=== PATIENT | female | born 1940 | race African-American/Black ===

== ENCOUNTER 2020-07-12 17:03 | Observation (INO) ==
[2020-07-12] MEDS ORDERED: Nystatin POWDER 30 GM BOTTLE TP PRN (18:56)
[2020-07-12] MEDS ORDERED: Acetaminophen 325 MG TABLET PO PRN (18:56)
[2020-07-12] MEDS ORDERED: hydrOXYzine pamoate 25 MG CAPSULE PO PRN (18:56)
[2020-07-12] MEDS ORDERED: Albuterol 2.5 MG/3 ML NEBULIZER IH PRN (18:56)
[2020-07-12] MEDS ORDERED: Venlafaxine XR (24 HR) 150 MG CAP.ER.24H PO SCH (21:00)
[2020-07-12] MEDS: Meropenem 1,000 MG in Water for inj. (sterile) 20 ML IVP SCH (22:45)
[2020-07-12] MEDS: Mirtazapine 15 MG TABLET PO SCH (22:46)
[2020-07-12] MEDS: ALPRAZolam 1 MG TABLET PO SCH (22:46)
[2020-07-13] MEDS: *HR* Enoxaparin 40 MG/0.4 ML SYRINGE SQ SCH (05:52)
[2020-07-13] MEDS: *HR* Amiodarone 200 MG TABLET PO SCH (07:45)
[2020-07-13] MEDS: Vitamin E 200 UNIT (90MG) CAPSULE PO SCH (07:45)
[2020-07-13] MEDS: Venlafaxine XR (24 HR) 150 MG CAP.ER.24H PO SCH (07:45)
[2020-07-13 07:46] LABS: Basophils % 0.2 %; Eosinophils % 0.1 %; Hemoglobin 11.3 g/dL (11.5-15.4); Lymphocytes # 2.8 K/mcL (0.6-4.6); Lymphocytes % 30.3 %; Mean Corpuscular HGB Conc 31.4 g/dL (31.6-35.5); Mean Corpuscular Hemoglobin 26.8 pg (28.0-33.3); Mean Corpuscular Volume 85.3 fL (83.0-100.0); Mean Platelet Volume 10.1 fL (9.4-12.4); Monocytes # 0.7 K/mcL (0.0-1.3); Monocytes % 7.3 %; Neutrophils # 5.7 K/mcL (1.6-8.9); Platelet Count 365 K/mcL (140-400); Red Blood Count 4.22 M/mcL (3.82-4.97); Red Cell Distribution Width 19.7 % (11.5-14.5); Segmented Neutrophils % 61.1 %; White Blood Count 9.3 K/mcL (4.3-11.1)
[2020-07-13] MEDS: Meropenem 1,000 MG in Water for inj. (sterile) 20 ML IVP SCH ×2 (07:46→21:53)
[2020-07-13] MEDS: Multivit/Ca/Min/Fe/FA 1 TAB TABLET PO SCH (07:46)
[2020-07-13] MEDS: allopurinoL 100 MG TABLET PO SCH (07:46)
[2020-07-13] MEDS: Aspirin Enteric Coated 81 MG Tablet PO SCH (07:46)
[2020-07-13 08:03] LABS: Alanine Aminotransferase 63 Units/L (7-52); Albumin 3.1 g/dL (3.5-5.7); Albumin/Globulin Ratio 0.9 (1.1-2.2); Alkaline Phosphatase 93 Units/L (34-104); Aspartate Amino Transferase 67 Units/L (13-39); BUN/Creatinine Ratio 23 (6-26); Bilirubin,Total 0.4 mg/dL (0.3-1.0); Blood Urea Nitrogen 23 mg/dL (8-23); Calcium 8.8 mg/dL (8.6-10.3); Carbon Dioxide 25 mEq/L (23-29); Chloride 104 mEq/L (98-107); Globulin 3.5 g/dL (2.4-3.5); Glucose 72 mg/dL (70-105); Magnesium 1.2 mg/dL (1.6-2.6); Osmolality,Calculated 292 (280-300); Potassium 3.4 mEq/L (3.5-5.1); Sodium 140 mEq/L (136-145); Total Protein 6.6 g/dL (6.4-8.9); eGFR For African Americans > 60 (> 60); eGFR For Non-African Americans 54 (> 60)
[2020-07-13] MEDS: ALPRAZolam 0.5 MG TABLET PO SCH (09:51)
[2020-07-13 13:42] LABS: Ferritin 1400 ng/mL (10-120)
[2020-07-13 13:53] LABS: C-Reactive Protein 32 mg/L (Less than 10)
[2020-07-13] MEDS: ALPRAZolam 1 MG TABLET PO SCH (21:53)
[2020-07-13] MEDS: Mirtazapine 15 MG TABLET PO SCH (21:53)
[2020-07-14] MEDS: *HR* Enoxaparin 40 MG/0.4 ML SYRINGE SQ SCH (04:25)
[2020-07-14 08:31] LABS: Hemoglobin 10.7 g/dL (11.5-15.4); Mean Corpuscular HGB Conc 31.5 g/dL (31.6-35.5); Mean Corpuscular Hemoglobin 26.5 pg (28.0-33.3); Mean Corpuscular Volume 84.2 fL (83.0-100.0); Mean Platelet Volume 10.1 fL (9.4-12.4); Platelet Count 410 K/mcL (140-400); Red Blood Count 4.04 M/mcL (3.82-4.97); Red Cell Distribution Width 19.4 % (11.5-14.5)
[2020-07-14 08:48] LABS: Alanine Aminotransferase 69 Units/L (7-52); Albumin/Globulin Ratio 0.9 (1.1-2.2); Alkaline Phosphatase 98 Units/L (34-104); Aspartate Amino Transferase 77 Units/L (13-39); BUN/Creatinine Ratio 19 (6-26); Bilirubin,Total 0.4 mg/dL (0.3-1.0); Blood Urea Nitrogen 20 mg/dL (8-23); Calcium 8.4 mg/dL (8.6-10.3); Carbon Dioxide 25 mEq/L (23-29); Chloride 105 mEq/L (98-107); Globulin 3.4 g/dL (2.4-3.5); Glucose 72 mg/dL (70-105); Magnesium 1.5 mg/dL (1.6-2.6); Osmolality,Calculated 289 (280-300); Sodium 139 mEq/L (136-145); Total Protein 6.4 g/dL (6.4-8.9); eGFR For African Americans > 60 (> 60); eGFR For Non-African Americans 51 (> 60)
[2020-07-14] MEDS: Aspirin Enteric Coated 81 MG Tablet PO SCH (11:21)
[2020-07-14] MEDS: Meropenem 1,000 MG in Water for inj. (sterile) 20 ML IVP SCH ×2 (11:21→21:24)
[2020-07-14] MEDS: Vitamin E 200 UNIT (90MG) CAPSULE PO SCH (11:22)
[2020-07-14] MEDS: Venlafaxine XR (24 HR) 150 MG CAP.ER.24H PO SCH (11:22)
[2020-07-14] MEDS: ALPRAZolam 0.5 MG TABLET PO SCH (11:22)
[2020-07-14] MEDS: allopurinoL 100 MG TABLET PO SCH (11:22)
[2020-07-14] MEDS: *HR* Amiodarone 200 MG TABLET PO SCH (11:22)
[2020-07-14] MEDS: Multivit/Ca/Min/Fe/FA 1 TAB TABLET PO SCH (11:22)
[2020-07-14] MEDS: Magnesium Oxide 400 MG TABLET PO SCH (21:24)
[2020-07-14] MEDS: ALPRAZolam 1 MG TABLET PO SCH (21:24)
[2020-07-14] MEDS: Mirtazapine 15 MG TABLET PO SCH (21:24)
[2020-07-15] MEDS: *HR* Enoxaparin 40 MG/0.4 ML SYRINGE SQ SCH (05:06)
[2020-07-15] MEDS: Vitamin E 200 UNIT (90MG) CAPSULE PO SCH (09:48)
[2020-07-15] MEDS: Aspirin Enteric Coated 81 MG Tablet PO SCH (09:48)
[2020-07-15] MEDS: *HR* Amiodarone 200 MG TABLET PO SCH (09:48)
[2020-07-15] MEDS: Magnesium Oxide 400 MG TABLET PO SCH ×2 (09:49→19:58)
[2020-07-15] MEDS: Multivit/Ca/Min/Fe/FA 1 TAB TABLET PO SCH (09:49)
[2020-07-15] MEDS: Venlafaxine XR (24 HR) 150 MG CAP.ER.24H PO SCH (09:49)
[2020-07-15] MEDS: allopurinoL 100 MG TABLET PO SCH (09:49)
[2020-07-15] MEDS: ALPRAZolam 0.5 MG TABLET PO SCH (09:49)
[2020-07-15] MEDS: Meropenem 1,000 MG in Water for inj. (sterile) 20 ML IVP SCH ×2 (09:49→19:59)
[2020-07-15 12:04] LABS: Hematocrit 36.3 % (35.3-44.9); Hemoglobin 11.2 g/dL (11.5-15.4); Mean Corpuscular HGB Conc 30.9 g/dL (31.6-35.5); Mean Corpuscular Hemoglobin 26.3 pg (28.0-33.3); Mean Corpuscular Volume 85.2 fL (83.0-100.0); Mean Platelet Volume 10.4 fL (9.4-12.4); Platelet Count 413 K/mcL (140-400); Red Blood Count 4.26 M/mcL (3.82-4.97); Red Cell Distribution Width 19.5 % (11.5-14.5); White Blood Count 6.7 K/mcL (4.3-11.1)
[2020-07-15 12:20] LABS: Calcium 8.4 mg/dL (8.6-10.3); Magnesium 1.8 mg/dL (1.6-2.6); Potassium 3.4 mEq/L (3.5-5.1)
[2020-07-15] MEDS: ALPRAZolam 1 MG TABLET PO SCH (19:58)
[2020-07-15] MEDS: Mirtazapine 15 MG TABLET PO SCH (19:58)
[2020-07-16] MEDS: *HR* Enoxaparin 40 MG/0.4 ML SYRINGE SQ SCH (04:54)
[2020-07-16] MEDS: allopurinoL 100 MG TABLET PO SCH (07:47)
[2020-07-16] MEDS: ALPRAZolam 0.5 MG TABLET PO SCH (07:47)
[2020-07-16] MEDS: Meropenem 1,000 MG in Water for inj. (sterile) 20 ML IVP SCH ×2 (07:48→20:32)
[2020-07-16] MEDS: Aspirin Enteric Coated 81 MG Tablet PO SCH (07:48)
[2020-07-16] MEDS: Multivit/Ca/Min/Fe/FA 1 TAB TABLET PO SCH (07:48)
[2020-07-16] MEDS: Vitamin E 200 UNIT (90MG) CAPSULE PO SCH (07:48)
[2020-07-16] MEDS: Magnesium Oxide 400 MG TABLET PO SCH ×2 (07:48→20:31)
[2020-07-16] MEDS: Venlafaxine XR (24 HR) 150 MG CAP.ER.24H PO SCH (07:48)
[2020-07-16] MEDS: *HR* Amiodarone 200 MG TABLET PO SCH (07:48)
[2020-07-16 11:53] LABS: Bilirubin,Urine Negative (Negative); Blood,Urine Negative (Negative); Clarity,Urine Clear (Clear); Color,Urine Yellow (Yellow); Glucose,Urine (UA) Normal (Normal); Ketones,Urine Trace mg/dL (Negative); Leukocyte Esterase,Urine Negative (Negative); Nitrite,Urine Negative (Negative); Protein,Urine 100 mg/dL (Neg-Trace); Specific Gravity,Urine 1.025 (1.010-1.025); Urobilinogen,Urine Normal (Normal)
[2020-07-16 11:54] LABS: Bacteria,Urine Few per hpf (None-Few); RBC,Urine 0-3 per hpf (0-3); Squamous Epithelial Cell,Urine Few per hpf (None-Few)
[2020-07-16] MEDS: Mirtazapine 15 MG TABLET PO SCH (20:31)
[2020-07-16] MEDS: ALPRAZolam 1 MG TABLET PO SCH (20:31)
[2020-07-17] MEDS: *HR* Enoxaparin 40 MG/0.4 ML SYRINGE SQ SCH (05:28)
[2020-07-17] MEDS: Aspirin Enteric Coated 81 MG Tablet PO SCH (09:07)
[2020-07-17] MEDS: Magnesium Oxide 400 MG TABLET PO SCH ×2 (09:07→22:18)
[2020-07-17] MEDS: *HR* Amiodarone 200 MG TABLET PO SCH (09:07)
[2020-07-17] MEDS: ALPRAZolam 0.5 MG TABLET PO SCH (09:07)
[2020-07-17] MEDS: Venlafaxine XR (24 HR) 150 MG CAP.ER.24H PO SCH (09:08)
[2020-07-17] MEDS: allopurinoL 100 MG TABLET PO SCH (09:08)
[2020-07-17] MEDS: Vitamin E 200 UNIT (90MG) CAPSULE PO SCH (09:08)
[2020-07-17] MEDS: Multivit/Ca/Min/Fe/FA 1 TAB TABLET PO SCH (09:08)
[2020-07-17] MEDS: Meropenem 1,000 MG in Water for inj. (sterile) 20 ML IVP SCH ×2 (09:14→22:17)
[2020-07-17] MEDS ORDERED: Bisacodyl 10 MG RECTAL SUPPOSITORY RC ONE (11:45)
[2020-07-17] MEDS: ALPRAZolam 1 MG TABLET PO SCH (22:18)
[2020-07-17] MEDS: Mirtazapine 15 MG TABLET PO SCH (22:18)
[2020-07-18] MEDS: *HR* Enoxaparin 40 MG/0.4 ML SYRINGE SQ SCH ×2 (05:04→06:35)
[2020-07-18] MEDS: Aspirin Enteric Coated 81 MG Tablet PO SCH (09:45)
[2020-07-18] MEDS: ALPRAZolam 0.5 MG TABLET PO SCH (09:45)
[2020-07-18] MEDS: Vitamin E 200 UNIT (90MG) CAPSULE PO SCH (09:45)
[2020-07-18] MEDS: Multivit/Ca/Min/Fe/FA 1 TAB TABLET PO SCH (09:46)
[2020-07-18] MEDS: Magnesium Oxide 400 MG TABLET PO SCH ×2 (09:46→21:22)
[2020-07-18] MEDS: Venlafaxine XR (24 HR) 150 MG CAP.ER.24H PO SCH (09:46)
[2020-07-18] MEDS: *HR* Amiodarone 200 MG TABLET PO SCH (09:46)
[2020-07-18] MEDS: allopurinoL 100 MG TABLET PO SCH (09:46)
[2020-07-18] MEDS: Meropenem 1,000 MG in Water for inj. (sterile) 20 ML IVP SCH ×2 (09:47→21:22)
[2020-07-18] MEDS: ALPRAZolam 1 MG TABLET PO SCH (21:21)
[2020-07-18] MEDS: Mirtazapine 15 MG TABLET PO SCH (21:21)
[2020-07-19] MEDS: *HR* Enoxaparin 40 MG/0.4 ML SYRINGE SQ SCH (05:05)
[2020-07-19 05:06] LABS: Basophils # 0.1 K/mcL (0.0-0.2); Basophils % 0.7 %; Eosinophils # 0.3 K/mcL (0.0-0.6); Eosinophils % 3.7 %; Hematocrit 34.9 % (35.3-44.9); Hemoglobin 10.7 g/dL (11.5-15.4); Immature Granulocytes % 1.8 % (0-4); Lymphocytes # 2.9 K/mcL (0.6-4.6); Lymphocytes % 32.8 %; Mean Corpuscular HGB Conc 30.7 g/dL (31.6-35.5); Mean Corpuscular Hemoglobin 26.4 pg (28.0-33.3); Mean Corpuscular Volume 86.2 fL (83.0-100.0); Mean Platelet Volume 10.3 fL (9.4-12.4); Monocytes % 10.7 %; Neutrophils # 4.5 K/mcL (1.6-8.9); Platelet Count 488 K/mcL (140-400); Red Blood Count 4.05 M/mcL (3.82-4.97); Red Cell Distribution Width 19.4 % (11.5-14.5); Segmented Neutrophils % 50.3 %; White Blood Count 8.9 K/mcL (4.3-11.1)
[2020-07-19 05:22] LABS: Potassium 4.7 mEq/L (3.5-5.1)
[2020-07-19] MEDS: Meropenem 1,000 MG in Water for inj. (sterile) 20 ML IVP SCH (08:37)
[2020-07-19] MEDS: allopurinoL 100 MG TABLET PO SCH (08:39)
[2020-07-19] MEDS: Vitamin E 200 UNIT (90MG) CAPSULE PO SCH (08:40)
[2020-07-19] MEDS: ALPRAZolam 0.5 MG TABLET PO SCH (08:40)
[2020-07-19] MEDS: *HR* Amiodarone 200 MG TABLET PO SCH (08:41)
[2020-07-19] MEDS: Magnesium Oxide 400 MG TABLET PO SCH (08:41)
[2020-07-19] MEDS: Multivit/Ca/Min/Fe/FA 1 TAB TABLET PO SCH (08:41)
[2020-07-19] MEDS: Venlafaxine XR (24 HR) 150 MG CAP.ER.24H PO SCH (08:41)
[2020-07-19] MEDS: Aspirin Enteric Coated 81 MG Tablet PO SCH (08:43)
[2020-07-19 09:03] VITALS: BP 116/71
== END 2020-07-19 15:22 | disposition other institution (70) ==
LOC: INPGRE
PROVIDERS: ADMIT Family Medicine; ATTEND Family Medicine

== ENCOUNTER 2020-07-19 15:44 | Inpatient (IN) ==
[2020-07-19] MEDS ORDERED: Albuterol 2.5 MG/3 ML NEBULIZER IH PRN (16:45)
[2020-07-19] MEDS ORDERED: Acetaminophen 325 MG TABLET PO PRN (16:45)
[2020-07-19] MEDS ORDERED: Nystatin POWDER 30 GM BOTTLE TP PRN (16:45)
[2020-07-19] MEDS ORDERED: Meropenem 1,000 MG in 0.9 % Sodium Chloride Mini Bag 100 ML IVPB SCH (20:00)
[2020-07-19] MEDS: Magnesium Oxide 400 MG TABLET PO SCH (21:00)
[2020-07-19] MEDS: Venlafaxine XR (24 HR) 150 MG CAP.ER.24H PO SCH (21:00)
[2020-07-19] MEDS: Mirtazapine 15 MG TABLET PO SCH (21:01)
[2020-07-19] MEDS: ALPRAZolam 1 MG TABLET PO SCH (21:01)
[2020-07-19] MEDS: Meropenem 1,000 MG in Water for inj. (sterile) 20 ML IVP SCH (21:02)
[2020-07-20] MEDS: *HR* Enoxaparin 40 MG/0.4 ML SYRINGE SQ SCH (05:11)
[2020-07-20 08:31] LABS: Basophils # 0.1 K/mcL (0.0-0.2); Basophils % 0.9 %; Eosinophils # 0.3 K/mcL (0.0-0.6); Eosinophils % 4.2 %; Hemoglobin 10.9 g/dL (11.5-15.4); Immature Granulocytes % 1.9 % (0-4); Lymphocytes # 2.7 K/mcL (0.6-4.6); Mean Corpuscular HGB Conc 30.3 g/dL (31.6-35.5); Mean Corpuscular Hemoglobin 25.9 pg (28.0-33.3); Mean Corpuscular Volume 85.5 fL (83.0-100.0); Mean Platelet Volume 10.4 fL (9.4-12.4); Monocytes # 0.9 K/mcL (0.0-1.3); Monocytes % 11.1 %; Platelet Count 410 K/mcL (140-400); Red Blood Count 4.21 M/mcL (3.82-4.97); Red Cell Distribution Width 19.3 % (11.5-14.5); Segmented Neutrophils % 48.9 %; White Blood Count 8.1 K/mcL (4.3-11.1)
[2020-07-20 09:12] LABS: BUN/Creatinine Ratio 20 (6-26); Blood Urea Nitrogen 21 mg/dL (8-23); Calcium 9.2 mg/dL (8.6-10.3); Carbon Dioxide 27 mEq/L (23-29); Chloride 106 mEq/L (98-107); Glucose 69 mg/dL (70-105); Osmolality,Calculated 289 (280-300); Potassium 4.6 mEq/L (3.5-5.1); Sodium 139 mEq/L (136-145); eGFR For African Americans > 60 (> 60); eGFR For Non-African Americans 50 (> 60)
[2020-07-20] MEDS: Aspirin Enteric Coated 81 MG Tablet PO SCH (09:56)
[2020-07-20] MEDS: Vitamin E 200 UNIT (90MG) CAPSULE PO SCH (09:56)
[2020-07-20] MEDS: *HR* Amiodarone 200 MG TABLET PO SCH (09:56)
[2020-07-20] MEDS: Multivit/Ca/Min/Fe/FA 1 TAB TABLET PO SCH (09:56)
[2020-07-20] MEDS: allopurinoL 100 MG TABLET PO SCH (09:56)
[2020-07-20] MEDS: ALPRAZolam 1 MG TABLET PO SCH ×2 (09:56→20:31)
[2020-07-20] MEDS: Magnesium Oxide 400 MG TABLET PO SCH ×2 (09:56→20:31)
[2020-07-20] MEDS: Venlafaxine XR (24 HR) 150 MG CAP.ER.24H PO SCH ×2 (09:57→20:31)
[2020-07-20] MEDS: Meropenem 1,000 MG in Water for inj. (sterile) 20 ML IVP SCH (09:57)
[2020-07-20] MEDS: Mirtazapine 15 MG TABLET PO SCH (20:31)
[2020-07-21] MEDS: *HR* Enoxaparin 40 MG/0.4 ML SYRINGE SQ SCH (05:38)
[2020-07-21] MEDS: Multivit/Ca/Min/Fe/FA 1 TAB TABLET PO SCH (10:32)
[2020-07-21] MEDS: Venlafaxine XR (24 HR) 150 MG CAP.ER.24H PO SCH (10:33)
[2020-07-21] MEDS: Vitamin E 200 UNIT (90MG) CAPSULE PO SCH (11:03)
[2020-07-21] MEDS: allopurinoL 100 MG TABLET PO SCH (11:03)
[2020-07-21] MEDS: ALPRAZolam 1 MG TABLET PO SCH ×2 (11:03→21:28)
[2020-07-21] MEDS: Aspirin 81 MG TAB.CHEW PO SCH (11:03)
[2020-07-21] MEDS: Magnesium Oxide 400 MG TABLET PO SCH ×2 (11:03→21:27)
[2020-07-21] MEDS: *HR* Amiodarone 200 MG TABLET PO SCH (11:03)
[2020-07-21] MEDS: Potassium Chloride Elixir 20 MEQ/15 ML UDC PO SCH ×2 (11:04→21:28)
[2020-07-21] MEDS: Aspirin Enteric Coated 81 MG Tablet PO SCH (11:31)
[2020-07-21] MEDS: Multivitamin Liquid 15 ML UDC PO SCH (15:01)
[2020-07-21] MEDS: Mirtazapine 15 MG TABLET PO SCH (21:27)
[2020-07-22] MEDS: *HR* Enoxaparin 40 MG/0.4 ML SYRINGE SQ SCH (05:32)
[2020-07-22] MEDS: Multivitamin Liquid 15 ML UDC PO SCH (09:01)
[2020-07-22] MEDS: Magnesium Oxide 400 MG TABLET PO SCH ×2 (09:02→20:09)
[2020-07-22] MEDS: allopurinoL 100 MG TABLET PO SCH (09:02)
[2020-07-22] MEDS: *HR* Amiodarone 200 MG TABLET PO SCH (09:02)
[2020-07-22] MEDS: Aspirin 81 MG TAB.CHEW PO SCH (09:02)
[2020-07-22] MEDS: Vitamin E 200 UNIT (90MG) CAPSULE PO SCH (09:02)
[2020-07-22] MEDS: ALPRAZolam 1 MG TABLET PO SCH ×2 (09:02→20:09)
[2020-07-22] MEDS: Potassium Chloride Elixir 20 MEQ/15 ML UDC PO SCH ×2 (09:03→20:09)
[2020-07-22] MEDS: Mirtazapine 15 MG TABLET PO SCH (20:09)
[2020-07-23] MEDS: *HR* Enoxaparin 40 MG/0.4 ML SYRINGE SQ SCH (05:04)
[2020-07-23] MEDS: ALPRAZolam 1 MG TABLET PO SCH ×2 (09:37→21:02)
[2020-07-23] MEDS: Magnesium Oxide 400 MG TABLET PO SCH ×2 (09:37→21:01)
[2020-07-23] MEDS: Potassium Chloride Elixir 20 MEQ/15 ML UDC PO SCH ×2 (09:38→21:01)
[2020-07-23] MEDS: Multivitamin Liquid 15 ML UDC PO SCH (09:38)
[2020-07-23] MEDS: Aspirin 81 MG TAB.CHEW PO SCH (09:38)
[2020-07-23] MEDS: Vitamin E 200 UNIT (90MG) CAPSULE PO SCH (09:38)
[2020-07-23] MEDS: *HR* Amiodarone 200 MG TABLET PO SCH (09:38)
[2020-07-23] MEDS: allopurinoL 100 MG TABLET PO SCH (09:38)
[2020-07-23] MEDS ORDERED: Haloperidol Lactate 5 MG/ML VIAL IVP ONE (18:19)
[2020-07-23] MEDS: Mirtazapine 15 MG TABLET PO SCH (21:01)
[2020-07-24] MEDS: *HR* Enoxaparin 30 MG/0.3 ML SYRINGE SQ SCH (05:26)
[2020-07-24] MEDS: Vitamin E 200 UNIT (90MG) CAPSULE PO SCH (08:20)
[2020-07-24] MEDS: Potassium Chloride Elixir 20 MEQ/15 ML UDC PO SCH ×2 (08:20→20:34)
[2020-07-24] MEDS: allopurinoL 100 MG TABLET PO SCH (08:20)
[2020-07-24] MEDS: Magnesium Oxide 400 MG TABLET PO SCH ×2 (08:21→20:33)
[2020-07-24] MEDS: Multivitamin Liquid 15 ML UDC PO SCH (08:21)
[2020-07-24] MEDS: *HR* Amiodarone 200 MG TABLET PO SCH (08:21)
[2020-07-24] MEDS: ALPRAZolam 1 MG TABLET PO SCH ×2 (08:21→20:34)
[2020-07-24] MEDS: Aspirin 81 MG TAB.CHEW PO SCH (08:21)
[2020-07-24] MEDS: Mirtazapine 15 MG TABLET PO SCH (20:34)
[2020-07-25] MEDS: *HR* Enoxaparin 30 MG/0.3 ML SYRINGE SQ SCH (05:01)
[2020-07-25 05:57] LABS: Basophils # 0.1 K/mcL (0.0-0.2); Basophils % 0.9 %; Eosinophils # 0.3 K/mcL (0.0-0.6); Eosinophils % 3.5 %; Hemoglobin 10.3 g/dL (11.5-15.4); Immature Granulocytes % 0.7 % (0-4); Lymphocytes # 3.3 K/mcL (0.6-4.6); Lymphocytes % 33.6 %; Mean Corpuscular HGB Conc 30.3 g/dL (31.6-35.5); Mean Corpuscular Hemoglobin 26.4 pg (28.0-33.3); Mean Corpuscular Volume 87.2 fL (83.0-100.0); Mean Platelet Volume 10.7 fL (9.4-12.4); Monocytes # 1.1 K/mcL (0.0-1.3); Neutrophils # 4.9 K/mcL (1.6-8.9); Platelet Count 395 K/mcL (140-400); Red Cell Distribution Width 19.8 % (11.5-14.5); Segmented Neutrophils % 50.3 %; White Blood Count 9.7 K/mcL (4.3-11.1)
[2020-07-25 06:01] LABS: Calcium 9.1 mg/dL (8.6-10.3)
[2020-07-25] MEDS: Aspirin 81 MG TAB.CHEW PO SCH (09:57)
[2020-07-25] MEDS: *HR* Amiodarone 200 MG TABLET PO SCH (09:57)
[2020-07-25] MEDS: Multivitamin Liquid 15 ML UDC PO SCH (09:57)
[2020-07-25] MEDS: Magnesium Oxide 400 MG TABLET PO SCH ×2 (09:57→21:12)
[2020-07-25] MEDS: ALPRAZolam 1 MG TABLET PO SCH ×3 (09:57→21:12)
[2020-07-25] MEDS: allopurinoL 100 MG TABLET PO SCH (09:57)
[2020-07-25] MEDS: Vitamin E 200 UNIT (90MG) CAPSULE PO SCH (09:57)
[2020-07-25] MEDS: Potassium Chloride Elixir 20 MEQ/15 ML UDC PO SCH ×2 (09:58→21:11)
[2020-07-25] MEDS: Venlafaxine XR (24 HR) 150 MG CAP.ER.24H PO SCH (21:12)
[2020-07-25] MEDS: Mirtazapine 15 MG TABLET PO SCH (21:12)
[2020-07-26] MEDS: *HR* Enoxaparin 40 MG/0.4 ML SYRINGE SQ SCH (06:03)
[2020-07-26] MEDS ORDERED: Haloperidol Lactate 5 MG/ML VIAL IM ONE ×2 (07:31→14:29)
[2020-07-26] MEDS: Magnesium Oxide 400 MG TABLET PO SCH (10:28)
[2020-07-26] MEDS: Vitamin E 200 UNIT (90MG) CAPSULE PO SCH (10:28)
[2020-07-26] MEDS: Multivitamin Liquid 15 ML UDC PO SCH (10:28)
[2020-07-26] MEDS: Potassium Chloride Elixir 20 MEQ/15 ML UDC PO SCH (10:28)
[2020-07-26] MEDS: *HR* Amiodarone 200 MG TABLET PO SCH (10:29)
[2020-07-26] MEDS: Venlafaxine XR (24 HR) 150 MG CAP.ER.24H PO SCH (10:29)
[2020-07-26] MEDS: Aspirin 81 MG TAB.CHEW PO SCH (10:29)
[2020-07-26] MEDS: allopurinoL 100 MG TABLET PO SCH (10:29)
[2020-07-26] MEDS: ALPRAZolam 1 MG TABLET PO SCH (10:29)
[2020-07-26] MEDS ORDERED: Haloperidol Lactate 5 MG/ML VIAL IM PRN (17:38)
[2020-07-27] MEDS: Magnesium Oxide 400 MG TABLET PO SCH ×3 (00:08→21:28)
[2020-07-27] MEDS: Potassium Chloride Elixir 20 MEQ/15 ML UDC PO SCH ×3 (00:08→21:28)
[2020-07-27] MEDS: Venlafaxine XR (24 HR) 150 MG CAP.ER.24H PO SCH ×3 (01:12→21:28)
[2020-07-27] MEDS: haloperidoL 1 MG TABLET PO SCH ×4 (01:12→21:28)
[2020-07-27] MEDS: Mirtazapine 15 MG TABLET PO SCH ×2 (01:12→21:28)
[2020-07-27] MEDS: ALPRAZolam 1 MG TABLET PO SCH ×3 (01:12→21:28)
[2020-07-27 04:52] LABS: Hematocrit 34.1 % (35.3-44.9); Hemoglobin 10.5 g/dL (11.5-15.4); Mean Corpuscular HGB Conc 30.8 g/dL (31.6-35.5); Mean Corpuscular Hemoglobin 26.6 pg (28.0-33.3); Mean Corpuscular Volume 86.5 fL (83.0-100.0); Platelet Count 331 K/mcL (140-400); Red Blood Count 3.94 M/mcL (3.82-4.97); Red Cell Distribution Width 19.9 % (11.5-14.5); White Blood Count 9.4 K/mcL (4.3-11.1)
[2020-07-27] MEDS: *HR* Enoxaparin 40 MG/0.4 ML SYRINGE SQ SCH (05:08)
[2020-07-27 05:17] LABS: Albumin 2.7 g/dL (3.5-5.7); Albumin/Globulin Ratio 0.9 (1.1-2.2); Bilirubin,Total 0.3 mg/dL (0.3-1.0); Calcium 8.9 mg/dL (8.6-10.3); Globulin 3.1 g/dL (2.4-3.5); Magnesium 1.5 mg/dL (1.6-2.6); Potassium 3.8 mEq/L (3.5-5.1); Total Protein 5.8 g/dL (6.4-8.9)
[2020-07-27] MEDS: Aspirin 81 MG TAB.CHEW PO SCH (10:15)
[2020-07-27] MEDS: Multivitamin Liquid 15 ML UDC PO SCH (10:15)
[2020-07-27] MEDS: allopurinoL 100 MG TABLET PO SCH (10:15)
[2020-07-27] MEDS: Vitamin E 200 UNIT (90MG) CAPSULE PO SCH (10:15)
[2020-07-27] MEDS: *HR* Amiodarone 200 MG TABLET PO SCH (10:16)
[2020-07-27 17:34] LABS: Bilirubin,Urine Negative (Negative); Blood,Urine Negative (Negative); Clarity,Urine Clear (Clear); Color,Urine Yellow (Yellow); Glucose,Urine (UA) Normal (Normal); Ketones,Urine Negative (Negative); Leukocyte Esterase,Urine Moderate (Negative); Nitrite,Urine Negative (Negative); Protein,Urine 30 mg/dL (Neg-Trace); Specific Gravity,Urine 1.025 (1.010-1.025); Urobilinogen,Urine Normal (Normal)
[2020-07-27 17:37] LABS: Bacteria,Urine Moderate per hpf (None-Few); Squamous Epithelial Cell,Urine Few per hpf (None-Few); WBC,Urine 50-100 per hpf (0-3)
[2020-07-27] MEDS: levoFLOXacin 500 MG TABLET PO SCH (21:39)
[2020-07-28] MEDS: *HR* Enoxaparin 40 MG/0.4 ML SYRINGE SQ SCH (05:31)
[2020-07-28] MEDS: ALPRAZolam 1 MG TABLET PO SCH ×2 (09:21→19:49)
[2020-07-28] MEDS: Vitamin E 200 UNIT (90MG) CAPSULE PO SCH (09:21)
[2020-07-28] MEDS: haloperidoL 1 MG TABLET PO SCH ×3 (09:21→19:49)
[2020-07-28] MEDS: Aspirin 81 MG TAB.CHEW PO SCH (09:21)
[2020-07-28] MEDS: allopurinoL 100 MG TABLET PO SCH (09:21)
[2020-07-28] MEDS: Venlafaxine XR (24 HR) 150 MG CAP.ER.24H PO SCH ×2 (09:22→19:49)
[2020-07-28] MEDS: Magnesium Oxide 400 MG TABLET PO SCH ×2 (09:22→19:49)
[2020-07-28] MEDS: *HR* Amiodarone 200 MG TABLET PO SCH (09:22)
[2020-07-28] MEDS: levoFLOXacin 500 MG TABLET PO SCH (09:22)
[2020-07-28] MEDS: Potassium Chloride Elixir 20 MEQ/15 ML UDC PO SCH ×2 (09:24→19:48)
[2020-07-28] MEDS: Multivitamin Liquid 15 ML UDC PO SCH (09:25)
[2020-07-28] MEDS: Mirtazapine 15 MG TABLET PO SCH (19:49)
[2020-07-29] MEDS: *HR* Enoxaparin 40 MG/0.4 ML SYRINGE SQ SCH (06:10)
[2020-07-29 07:36] VITALS: BP 110/74
[2020-07-29] MEDS: Aspirin 81 MG TAB.CHEW PO SCH (09:06)
[2020-07-29] MEDS: ALPRAZolam 1 MG TABLET PO SCH (09:06)
[2020-07-29] MEDS: Venlafaxine XR (24 HR) 150 MG CAP.ER.24H PO SCH (09:06)
[2020-07-29] MEDS: haloperidoL 1 MG TABLET PO SCH (09:06)
[2020-07-29] MEDS: levoFLOXacin 500 MG TABLET PO SCH (09:06)
[2020-07-29] MEDS: *HR* Amiodarone 200 MG TABLET PO SCH (09:13)
[2020-07-29] MEDS: Potassium Chloride Elixir 20 MEQ/15 ML UDC PO SCH (09:29)
[2020-07-29] MEDS: Magnesium Oxide 400 MG TABLET PO SCH (09:29)
[2020-07-29] MEDS: Vitamin E 200 UNIT (90MG) CAPSULE PO SCH (09:29)
[2020-07-29] MEDS: allopurinoL 100 MG TABLET PO SCH (09:29)
[2020-07-29] MEDS: Multivitamin Liquid 15 ML UDC PO SCH (09:29)
== END 2020-07-29 14:11 | disposition home health service (06) | DRG 178 ==
LOC: INPGRE 16:08
PROVIDERS: ADMIT Family Medicine; ATTEND Family Medicine